=== PATIENT | male | born 1950 | race Caucasian/White ===

== ENCOUNTER 2016-07-13 22:30 | Emergency (ER) | payer OTHER ==
--- NOTE | ~2016-07-13 | CR72 ---
[facility] A Service of [facility] & [facility] RADIOLOGY TEXT RESULTS PATIENT: KIARA LICONA JR LOCATION: [facility] : 52 UNIT #: [id number] AGE: [address]: Gwyn Hoffmann MD SEX: M ORDER DR: [id number] [facility] [address] [place], [place] [address] [id number] E MR#: [id number] Acc #: [id number] NAME: KIARA LICONA JR : 1950 SEX: M STUDY DATE/TIME: 07/13/2016 22:46 UNIT: [facility] ROOM: STUDY DESCRIPTION: CR Chest Single View Portable Attending Physician: Gwyn Hoffmann M.D. Ordering Physician: Gwyn Hoffmann M.D. Primary Care Physician: Suzie Cooper A.P.R.N. MEDICAL IMAGING REPORT This report is preliminary unless electronic signature is present EXAM Portable chest, 07/13 at 22:46. INDICATIONS Chest pain and nausea for 1 week. History of alcohol use. FINDINGS AP portable chest compared with 05/30/2011. Cardiac and mediastinal contours are normal. The lungs are clear. There is no pneumothorax. IMPRESSION No active disease. Dictated by... Nikita Simms Jr., M.D. THIS IS AN ELECTRONICALLY VERIFIED REPORT Nikita Simms Jr., M.D. at 07/14/2016 12:34 PM RICCI/sae TD: 07/14/2016 07:28 JOB #: [id number] MEDICAL IMAGING REPORT Page 1 of 1 COPY
--- NOTE | ~2016-07-13 | EKG ---
PATIENT: KIARA LICONA UNIT #: [id number] Ventricular Rate: 83 BPM Atrial Rate: 83 BPM P-R Interval: 172 ms QRS Duration: 88 ms Q-T Interval: 378 ms QTC Calculation(Bezet): 444 ms P [place]: 49 degrees Calculated R [place]: -45 degrees Calculated T [place]: 58 degrees Diagnosis Line: Normal sinus rhythm Diagnosis Line: Left axis deviation Diagnosis Line: Abnormal ECG Diagnosis Line: No previous ECGs available Diagnosis Line: Confirmed by ELSA DAHL MD ([id number]) on 07/15/2016 Diagnosis Line: 4:30:15 PM INTERPRETING MD: NABILA CARNEY
[2016-07-13 22:29] LABS: POC - CKMB 1.6 ng/mL (0.0-7.9); POC - TROPONIN <0.05 ng/mL (<=0.05)
[~2016-07-13 22:30] MED LIST: AMLODIPINE BESYLATE PO; BENAZEPRIL PO; FLAGYL250 M1 PO; OMEPRAZOLE40 MG PO; SYNTHROID75 MCG PO
[2016-07-13 23:01] LABS: BASOPHIL# 0.1 X10e3 (0-0.3); EOSINOPHIL% 0.2 % (0.0-7.0); HEMOGLOBIN 15.8 gm/dL (13.0-16.0); LYMPHOCYTE# 3.5 X10e3 (1.0-3.5); MEAN CORPUSCULAR HEMOGLOBIN 29.6 PG (28-34); MEAN CORPUSCULAR HGB CONC 32.9 g/dL (30-36); MEAN PLATELET VOLUME 8.6 FL (6.5-11.5); MONOCYTE# 0.7 X10e3 (0-1.0); NEUTROPHIL# 5.2 X10e3 (1.5-7.1); NEUTROPHIL% 54.8 % (40-75); PLATELET COUNT 306 X10e3 (140-420); RED BLOOD COUNT 5.33 X10e (3.90-5.60); RED CELL DISTRIBUTION WIDTH 13.7 % (11.0-15.5); WHITE BLOOD COUNT 9.5 X10e3 (4.0-10.5)
[2016-07-13 23:04] LABS: DIFF IND NO
[2016-07-13 23:25] LABS: ALBUMIN SERUM 4.1 g/dL (3.5-5.0); BILIRUBIN, DIRECT 0.1 mg/dL (0.0-0.2); BILIRUBIN,INDIRECT 0.6 mg/dL (0.0-0.9); BILIRUBIN,TOTAL 0.7 mg/dL (0.2-2.0); BUN/CREATININE RATIO 16.47; CALCIUM SERUM 8.9 mg/dL (8.4-10.2); CREATININE SERUM 1.7 mg/dL (0.6-1.4); GLOM FILT RATE Estimated 41.7 mL/min (>60); PROTEIN TOTAL SERUM 7.8 g/dL (6.0-8.3)
[2016-07-14 00:50] LABS: POC - CKMB <1.0 ng/mL (0.0-7.9); POC - TROPONIN <0.05 ng/mL (<=0.05)
== END 2016-07-14 01:25 | disposition home or self-care (01) ==
LOC: CED 22:30
PROVIDERS: Emergency Medicine
DX: K21.0 Gastro-esophageal reflux disease with esophagitis (principal); E86.0 Dehydration; F10.10 Alcohol abuse, uncomplicated; I10 Essential (primary) hypertension; F17.210 Nicotine dependence, cigarettes, uncomplicated; Z98.890 Other specified postprocedural states
CPT/HCPCS: 36415; 71010; 80048; 80076; 82553; 83690; 84484; 85025; 93005; 96361; 96374; 96375; 99284; C9113; G0480; J2405; J2765